=== PATIENT | male | born 1970 | race Caucasian/White ===

== ENCOUNTER 2017-12-03 08:43 | Emergency (ER) | payer OTHER ==
[~2017-12-03] VITALS: Ht 185.4 cm; Wt 100.0 kg
[2017-12-03 08:57] VITALS: BP 137/93; PULSE 93; RESP 17; TEMP 97.8; O2SAT 100
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
[2017-12-03] MEDS ORDERED: IOHEXOL 350 MG/ML 10 ML VIAL (for RAD DIAG) IVCONTRAST ONE (11:17)
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
[2017-12-03 11:30] VITALS: BP 124/87; PULSE 87; RESP 18; TEMP 97.8; O2SAT 99
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
[2017-12-03] MEDS ORDERED: MORPHINE SULFATE 4 MG/ML INJ IM ONE (12:00)
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
[2017-12-03 12:07] VITALS: RESP 4
[2017-12-03] MEDS ORDERED: IBUP-232 PO (12:30)
[2017-12-03 12:43] VITALS: BP 142/77; TEMP 97.8
== END 2017-12-03 12:43 | disposition home or self-care (01) ==
LOC: NEPE 08:43
DX: M25.511 Pain in right shoulder (principal); M54.9 Dorsalgia, unspecified; S00.81XA Abrasion of other part of head, initial encounter; V53.5XXA Driver of pick-up truck or van injured in collision with car, pick-up truck or van in traffic accident, initial encounter; R91.8 Other nonspecific abnormal finding of lung field; Z87.891 Personal history of nicotine dependence
CPT/HCPCS: 70450; 70486; 71260; 72125; 72129; 72132; 73030; 74177; 96372; 99284; J2270; Q9967